=== PATIENT | female | born 1970 | race Two or more races ===

== ENCOUNTER → 2025-09-06 | Outpatient (CLI) | payer MEDICAID, SELFPAY ==
--- NOTE | 2025-09-06 13:00 | XR_ITS ---
Examination: CT abdomen with intravenous contrast CT pelvis with intravenous contrast 2-D coronal reconstructions 2-D sagittal reconstructions Date and time of exam: September 06, 2025, 1328 hours, comparison November 07, 2014 INDICATIONS: Epigastric pain and vomiting 3 months. CTDI: vol (mGy) 9.40 DLP: (mGycm) 532 Technique: Multiple axial sections of the abdomen and pelvis have been obtained. 64 slice high-resolution scanner used. 3 mm axial sections have been obtained, post intravenous injection 60 cc [id number]. 2-D sagittal, coronal reconstructions obtained. Low dose protocols were performed. One or more of the following dose reduction techniques were used; automated exposure control, adjustment of the mA and/or KV according to patient size, use of iterative reconstruction technique. Findings: No focal liver or splenic lesions No gallstones No pancreatic or adrenal mass No renal or ureteral calculi, no hydronephrosis. No bowel obstruction No pericecal inflammatory change No diverticulitis No pelvic mass Urinary bladder intact IMPRESSION: No renal or ureteral calculi, no hydronephrosis No CT findings of appendicitis bowel obstruction or diverticulitis
== END | disposition home or self-care (01) ==
PROVIDERS: PCP Nurse Practitioner Family; Referring Provider Internal Medicine Gastroenterology; Visit Provider Internal Medicine Gastroenterology
DX: R11.2 Nausea with vomiting, unspecified (principal)
CPT/HCPCS: 74177; A4649; Q9967